=== PATIENT | female | born 1970 | race Caucasian/White ===

== ENCOUNTER → 2016-03-31 | Outpatient (REF) | payer MEDICARE, MEDICAID ==
[2016-03-31 13:58] LABS: ALBUMIN 4.2 g/dL (3.4-5.0); ANION GAP 16.1 MEQ/L (3-15); CALCULATED IONIZED CALCIUM 3.8 mg/dL (3.8-4.6); TOTAL PROTEIN 7.7 g/dL (6.4-8.5)
[2016-03-31 14:00] LABS: BASOPHILS % (AUTO) 1 % (0-2); EOSINOPHILS # (AUTO) 0.1 10^3uL; EOSINOPHILS % (AUTO) 1 % (0-4); LYMPHOCYTES # (AUTO) 1.5 X10^3; MEAN CORPUSCULAR HEMOGLOBIN 29.7 PG (26.0-34.0); MEAN CORPUSCULAR HGB CONC 34.9 g/dL (31.0-37.0); MEAN CORPUSCULAR VOLUME 85 FL (80-100); MEAN PLATELET VOLUME 9.3 FL (6.0-9.5); MONOCYTES # (AUTO) 0.4 X10^3; MONOCYTES % (AUTO) 9 % (3-11); NEUTROPHILS # (AUTO) 2.8 X10^3; NEUTROPHILS % (AUTO) 58 % (51-67); PLATELET COUNT 297 10^3uL (150-450); WHITE BLOOD COUNT 4.83 10^3uL (4.0-11.0)
== END ==
LOC: LAB 13:21
PROVIDERS: ATTEND Family Medicine
DX: G40.89 Other seizures (principal); G21.8 Other secondary parkinsonism; Z13.6 Encounter for screening for cardiovascular disorders; R63.5 Abnormal weight gain; R73.09 Other abnormal glucose
CPT/HCPCS: 80053; 80061; 80156; 83036; 84443; 85025